=== PATIENT | female | born 1950 | race Asian ===

== ENCOUNTER 2022-12-13 15:43 | Inpatient (IN) | payer OTHER, MEDICAID ==
[~2022-12-13] VITALS: Ht 160 cm; Wt 54.5 kg
[2022-12-13] MEDS ORDERED: SODIUM CHLORIDE 0.9% 1000ML BAG (SEPSIS BOLUS) IV ONE (16:00)
[2022-12-13] MEDS ORDERED: CEFTRIAXONE 1 G PREMIX 50 ML IV ONE (16:00)
[2022-12-13 16:38] LABS: HEMATOCRIT. 35.1 % (36.0-48.0); HEMOGLOBIN. 11.3 g/dL (12.0-16.0); MEAN CORPUSCULAR HEMOGLOBIN 26.8 pg (28.0-32.0); MEAN CORPUSCULAR VOLUME 83.2 fL (81.0-99.0); MEAN PLATELET VOLUME 6.9 fl (7.4-10.4); PLATELET 266 x1000/uL (130-400); RED BLOOD CELL COUNT 4.21 mill/uL (4.2-5.4); RED CELL DISTRIBUTION WIDTH 14.5 % (11.6-14.6)
[2022-12-13 16:47] LABS: CHLORIDE 103 mEq/L (98-107)
[2022-12-13 17:00] LABS: INR 1.1; PROTHROMBIN TIME 11.5 sec (9.6-11.0)
[2022-12-13 17:53] LABS: PLATELET ESTIMATE NORMAL
[2022-12-13] MEDS ORDERED: LORAZEPAM 2MG/ML CPJ IM PRN (18:45)
[2022-12-13] MEDS ORDERED: PIPERACILLIN/TAZ 3.375G PREMIX 50 ML IV ONE (20:15)
[2022-12-13] MEDS ORDERED: VANCOMYCIN 1G PREMIX 200 ML IV ONE (20:15)
[2022-12-13] MEDS ORDERED: IOHEXOL-350 100 ML BOTTLE ONE (23:00)
[2022-12-13 23:15] LABS: CLARITY URINE CLOUDY (CLEAR); COLOR URINE YELLOW (YELLOW); KETONES URINE TRACE (NEGATIVE); LEUKOCYTE ESTERASE URINE 2+ (NEGATIVE); NITRITE URINE NEGATIVE (NEGATIVE); OCCULT BLOOD URINE 3+ (NEGATIVE); PROTEIN URINE 2+ (NEGATIVE); SPECIFIC GRAVITY URINE 1.025 (1.005-1.030); UROBILINOGEN URINE 0.2 E.U./dL (0.2-1.0)
[2022-12-14] MEDS ORDERED: ACETAMINOPHEN 325MG TABLET PO PRN ×2 (01:15)
[2022-12-14] MEDS ORDERED: GUAIFENESIN 200MG/10ML SUGAR FREE UDC PO PRN (01:15)
[2022-12-14] MEDS ORDERED: VANCOMYCIN 1G PREMIX 200 ML IV SCH ×2 (01:15→20:00)
[2022-12-14] MEDS ORDERED: ONDANSETRON HCL 4MG/2ML INJ IV PRN (01:15)
[2022-12-14] MEDS ORDERED: LORAZEPAM 0.5MG TABLET PO PRN (01:15)
[2022-12-14] MEDS ORDERED: MAGNESIUM/ALUMINUM HYDROXIDE/SIMETHICONE 30ML UDC PO PRN (01:15)
[2022-12-14] MEDS ORDERED: DEXTROSE 50% WATER 50ML SYRINGE IV PRN (01:15)
[2022-12-14] MEDS ORDERED: DOCUSATE SODIUM 100MG CAPSULE PO PRN (01:15)
[2022-12-14] MEDS ORDERED: CLONIDINE 0.1MG TABLET PO PRN (01:15)
[2022-12-14] MEDS ORDERED: SODIUM CHLORIDE 0.9% 1,000 ML IV SCH (01:15)
[2022-12-14] MEDS ORDERED: IPRATROPIUM/ALBUTEROL 0.5-3(2.5)MG/3ML NEB NEB PRN (01:15)
[2022-12-14 04:19] LABS: HEMOGLOBIN. 9.5 g/dL (12.0-16.0); MEAN CORPUSCULAR HEMOGLOBIN 26.5 pg (28.0-32.0); MEAN CORPUSCULAR VOLUME 80.9 fL (81.0-99.0); MEAN PLATELET VOLUME 6.6 fl (7.4-10.4); PLATELET 214 x1000/uL (130-400); RED BLOOD CELL COUNT 3.59 mill/uL (4.2-5.4); RED CELL DISTRIBUTION WIDTH 13.9 % (11.6-14.6)
[2022-12-14 04:33] LABS: CHLORIDE 103 mEq/L (98-107)
[2022-12-14 04:43] LABS: CREATINE KINASE 743 IU/L (26-192)
[2022-12-14 04:49] LABS: HDL CHOLESTEROL 53 mg/dL (40-59); LDL CHOLESTEROL 36 mg/dL (5-100); T4 FREE 1.17 ng/dL (0.76-1.46)
[2022-12-14 05:34] LABS: PLATELET ESTIMATE NORMAL
[2022-12-14 05:44] LABS: TOTAL IRON BINDING CAPACITY 252 ug/dL (250-450)
[2022-12-14] MEDS: PIPERACILLIN/TAZOBACTAM 3.375 G in DEXTROSE 5% WATER 50 ML IV SCH ×3 (05:44→23:05)
[2022-12-14] MEDS: INSULIN LISPRO 100 UNITS/ML SUBCUT SCH ×4 (08:20→21:22)
[2022-12-14] MEDS: RISPERIDONE 0.5MG TABLET PO SCH (09:00)
[2022-12-14] MEDS: SERTRALINE HCL 50MG TABLET PO SCH (09:00)
[2022-12-14] MEDS: MEMANTINE HCL 10MG TABLET PO SCH ×2 (09:00→21:00)
[2022-12-14] MEDS: AMLODIPINE 5MG TABLET PO SCH (09:00)
[2022-12-14] MEDS: KCL 20MEQ/100ML PREMIX 100 ML IV SCH ×2 (09:34→13:11)
[2022-12-14] MEDS: BLOOD SUGAR DIAGNOSTIC STRIP TEST SCH ×4 (09:50→21:00)
[2022-12-14] MEDS: FAMOTIDINE 20MG/2ML VIAL IV SCH (09:59)
[2022-12-14 11:00] VITALS: BP 120/59
[2022-12-14] MEDS ORDERED: KCL 20MEQ/100ML PREMIX 100 ML IV SCH (11:00)
[2022-12-14 11:30] VITALS: BP 120/59
[2022-12-14] MEDS ORDERED: DEXT 5%/0.45% NACL 1000ML 1,000 ML IV SCH (15:00)
[2022-12-14 16:00] VITALS: BP 130/70
[2022-12-14] MEDS ORDERED: ALBUTEROL (0.083%) 2.5MG/3ML NEB HHN PRN (17:45)
[2022-12-14] MEDS ORDERED: IPRATROPIUM BROMIDE (0.02%) 0.5MG/2.5ML NEB HHN PRN (17:45)
[2022-12-14 18:05] LABS: CREATINE KINASE 856 IU/L (26-192)
[2022-12-14] MEDS ORDERED: PROPOFOL 200MG/20ML VIAL IV ONE (18:18)
[2022-12-14] MEDS ORDERED: ONDANSETRON HCL 4MG/2ML INJ ONE (18:19)
[2022-12-14] MEDS ORDERED: CEFAZOLIN SODIUM 1000MG/VIAL ONE (18:19)
[2022-12-14] MEDS ORDERED: DEXAMETHASONE 4MG/ML 1ML VIAL ONE (18:19)
[2022-12-14 20:00] VITALS: BP 127/62
[2022-12-14] MEDS ORDERED: ROSU5TAB MT (20:08)
[2022-12-14] MEDS ORDERED: MEMA5TAB42 MT (20:08)
[2022-12-14] MEDS ORDERED: MIRT7.5T11 PO (20:08)
[2022-12-14] MEDS ORDERED: GLIP1TAB5 MT (20:08)
[2022-12-14] MEDS ORDERED: SERT50TA MT (20:08)
[2022-12-14] MEDS ORDERED: RISP0.5T65 MT (20:08)
[2022-12-14] MEDS ORDERED: AMLO2.5T45 MT (20:08)
[2022-12-14] MEDS ORDERED: LORA2ORA5 MT (20:08)
[2022-12-14] MEDS: ATORVASTATIN CALCIUM 20MG TABLET PO SCH (21:00)
[2022-12-14] MEDS ORDERED: MIRTAZAPINE 15MG TABLET PO PRN (21:00)
[2022-12-14] MEDS: VANCOMYCIN 750MG PREMIX 150 ML IV SCH (21:22)
[2022-12-15] VITALS: BP 108/55
[2022-12-15 04:00] VITALS: BP 108/60
[2022-12-15] MEDS: PIPERACILLIN/TAZOBACTAM 3.375 G in DEXTROSE 5% WATER 50 ML IV SCH ×3 (05:36→23:51)
[2022-12-15 06:17] LABS: HEMATOCRIT. 27.4 % (36.0-48.0); HEMOGLOBIN. 9.1 g/dL (12.0-16.0); MEAN CORPUSCULAR HEMOGLOBIN 27.2 pg (28.0-32.0); MEAN PLATELET VOLUME 7.1 fl (7.4-10.4); PLATELET 183 x1000/uL (130-400); RED BLOOD CELL COUNT 3.34 mill/uL (4.2-5.4); RED CELL DISTRIBUTION WIDTH 14.4 % (11.6-14.6)
[2022-12-15] MEDS: BLOOD SUGAR DIAGNOSTIC STRIP TEST SCH ×4 (06:36→21:58)
[2022-12-15] MEDS: INSULIN LISPRO 100 UNITS/ML SUBCUT SCH ×4 (06:48→21:58)
[2022-12-15 07:08] LABS: CHLORIDE 111 mEq/L (98-107)
[2022-12-15 07:18] LABS: PHOSPHORUS 2.7 mg/dL (2.5-4.9)
[2022-12-15 08:00] VITALS: BP 121/59
[2022-12-15] MEDS ORDERED: LORAZEPAM 2MG/ML CPJ IV PRN (09:15)
[2022-12-15] MEDS ORDERED: KCL 20MEQ/100ML PREMIX 100 ML IV NR ×2 (09:30→13:00)
[2022-12-15] MEDS: FAMOTIDINE 20MG/2ML VIAL IV SCH (09:59)
[2022-12-15] MEDS: AMLODIPINE 5MG TABLET PO SCH (10:00)
[2022-12-15] MEDS: SERTRALINE HCL 50MG TABLET PO SCH (10:01)
[2022-12-15] MEDS: MEMANTINE HCL 10MG TABLET PO SCH ×2 (10:01→21:57)
[2022-12-15] MEDS: RISPERIDONE 0.5MG TABLET PO SCH (10:01)
[2022-12-15 12:00] VITALS: BP 106/52
[2022-12-15 13:34] LABS: PLATELET ESTIMATE NORMAL
[2022-12-15] MEDS: SODIUM CHLORIDE 0.45% 1,000 ML IV SCH (15:18)
[2022-12-15 16:00] VITALS: BP 125/69
[2022-12-15 20:00] VITALS: BP 134/59
[2022-12-15] MEDS: ATORVASTATIN CALCIUM 20MG TABLET PO SCH (21:57)
[2022-12-15] MEDS: VANCOMYCIN 750MG PREMIX 150 ML IV SCH (21:59)
[2022-12-16] VITALS: BP 137/69
[2022-12-16 04:00] VITALS: BP 146/56
[2022-12-16 05:06] VITALS: BP 146/56
[2022-12-16] MEDS: PIPERACILLIN/TAZOBACTAM 3.375 G in DEXTROSE 5% WATER 50 ML IV SCH ×2 (06:26→15:23)
[2022-12-16] MEDS: BLOOD SUGAR DIAGNOSTIC STRIP TEST SCH ×3 (06:39→16:40)
[2022-12-16] MEDS: INSULIN LISPRO 100 UNITS/ML SUBCUT SCH ×3 (06:39→18:23)
[2022-12-16 07:27] LABS: BASOPHILS % 0.2 % (0.0-2.0); EOSINOPHILS % 0.2 % (0.0-5.0); HEMATOCRIT. 27.4 % (36.0-48.0); HEMOGLOBIN. 9.1 g/dL (12.0-16.0); LYMPHOCYTES % 7.9 % (20.0-50.0); MEAN CORPUSCULAR HEMOGLOBIN 27.1 pg (28.0-32.0); MEAN CORPUSCULAR VOLUME 81.8 fL (81.0-99.0); MEAN PLATELET VOLUME 7.8 fl (7.4-10.4); MONOCYTES % 7.5 % (2.0-8.0); NEUTROPHILS % 84.2 % (40.0-76.0); PLATELET 198 x1000/uL (130-400); RED BLOOD CELL COUNT 3.35 mill/uL (4.2-5.4); RED CELL DISTRIBUTION WIDTH 14.5 % (11.6-14.6)
[2022-12-16 08:00] VITALS: BP 161/81
[2022-12-16] MEDS ORDERED: LEVO-65 PO (08:26)
[2022-12-16] MEDS ORDERED: SULF473O3 PO (08:26)
[2022-12-16] MEDS: RISPERIDONE 0.5MG TABLET PO SCH (09:00)
[2022-12-16] MEDS: FAMOTIDINE 20MG/2ML VIAL IV SCH (09:03)
[2022-12-16] MEDS: SERTRALINE HCL 50MG TABLET PO SCH (09:04)
[2022-12-16] MEDS: AMLODIPINE 5MG TABLET PO SCH (09:04)
[2022-12-16] MEDS: MEMANTINE HCL 10MG TABLET PO SCH (09:04)
[2022-12-16] MEDS: SODIUM CHLORIDE 0.45% 1,000 ML IV SCH (10:15)
[2022-12-16] MEDS: KCL 20MEQ/100ML PREMIX 100 ML IV SCH ×2 (10:27→13:08)
[2022-12-16] MEDS ORDERED: VANCOMYCIN 750MG PREMIX 150 ML IV SCH (13:00)
[2022-12-16 16:00] VITALS: BP 148/40
[2022-12-16 17:07] VITALS: BP 148/40
== END 2022-12-16 18:50 | disposition home or self-care (01) | DRG 853 ==
LOC: ER 15:43 → 7EST 12-14 00:34 → SUPCPDRO 12-14 01:11
PROVIDERS: ADMIT Internal Medicine; ATTEND Internal Medicine
PROC: 0T778DZ Dilation of Left Ureter with Intraluminal Device, Via Natural or Artificial Opening Endoscopic (ICD-10-PCS; principal; 2022-12-14)
DX: A41.9 Sepsis, unspecified organism (principal); G93.41 Metabolic encephalopathy; N17.9 Acute kidney failure, unspecified; N13.6 Pyonephrosis; F03.90 Unspecified dementia, unspecified severity, without behavioral disturbance, psychotic disturbance, mood disturbance, and anxiety; E11.65 Type 2 diabetes mellitus with hyperglycemia; I10 Essential (primary) hypertension; Z96.649 Presence of unspecified artificial hip joint; E87.6 Hypokalemia; R31.0 Gross hematuria; R65.20 Severe sepsis without septic shock; D63.8 Anemia in other chronic diseases classified elsewhere; E78.5 Hyperlipidemia, unspecified; Z20.822 Contact with and (suspected) exposure to COVID-19; R13.10 Dysphagia, unspecified; M19.90 Unspecified osteoarthritis, unspecified site; Z79.899 Other long term (current) drug therapy
CPT/HCPCS: 36415; 71045; 71275; 74174; 80048; 80053; 80061; 80202; 81003; 82550; 82728; 82962; 83036; 83540; 83550; 83605; 83735; 84100; 84145; 84439; 84443; 84481; 84484; 85025; 87426; 92610; 93005; 93306; 93970; 97162; 97166; 99291; C1893; C2617; C9803; J0690; J0696; J1100; J1815; J2060; J2405; J2543; J2704; J3370; J3480; J3490; J7030; J7060; Q9967